=== PATIENT | female | born 1955 | race Caucasian/White ===

== ENCOUNTER 2017-08-11 10:28 | Emergency (ER) | payer SELFPAY, MEDICAID ==
[2017-08-11 12:49] LABS: URINE BLOOD (Dip) POC 2+ (NEGATIVE); URINE GLUCOSE (Dip) POC Negative (NEGATIVE); URINE KETONES (Dip) POC Negative (NEGATIVE); URINE LEUKOCYTE EST (Dip) POC 1+ (NEGATIVE); URINE NITRITE (Dip) POC Negative (NEGATIVE); URINE TOTAL PROTEIN POC Negative (NEGATIVE)
[2017-08-11 13:04] LABS: ADD MAN DIFF? NO
[2017-08-11 13:09] LABS: WHITE BLOOD COUNT 7.7 10^3/ul (4.8-10.8)
[2017-08-11 13:09] LABS: BASOPHIL # 0.1 10^3/ul (0.0-0.1); BASOPHILS % 0.7 % (0.0-2.0); EOSINOPHILS # 0.1 10^3/ul (0.0-0.5); EOSINOPHILS % 1.8 % (0.0-7.0); HEMATOCRIT 38.3 % (37.0-47.0); HEMOGLOBIN 13.4 g/dl (12.0-16.0); LYMPHOCYTES # 1.7 10^3/ul (0.8-2.9); MEAN CORPUSCULAR HEMOGLOBIN 29.5 pg (29.0-33.0); MEAN CORPUSCULAR VOLUME 84.4 fl (82.0-101.0); MEAN PLATELET VOLUME 10.1 fl (7.4-10.4); MONOCYTE # 0.5 10^3/ul (0.3-0.9); MONOCYTES % 6.6 % (0.0-11.0); NEUTROPHIL # 5.3 10^3/ul (1.6-7.5); NEUTROPHILS % 68.6 % (39.0-77.0); PLATELET COUNT 335 10^3/UL (140-415); RED BLOOD COUNT 4.54 10^6/ul (4.20-5.40)
[2017-08-11 13:31] LABS: ALANINE AMINOTRANSFERASE 62 IU/L (13-69); ALBUMIN 5.1 g/dl (3.3-4.9); ALKALINE PHOSPHATASE 104 IU/L (42-121); ANION GAP 19 (8-16); ASPARTATE AMINO TRANSFERASE 49 IU/L (15-46); BILIRUBIN,INDIRECT 0.6 mg/dl (0-1.1); BILIRUBIN,TOTAL 0.6 mg/dl (0.2-1.3); BLOOD UREA NITROGEN 9 mg/dl (7-20); CALCIUM 10.2 mg/dl (8.4-10.2); CARBON DIOXIDE 29 mmol/L (21-31); CHLORIDE 94 mmol/L (97-110); CREATININE 0.53 mg/dl (0.44-1.00); GLUCOSE 177 mg/dl (70-220); POTASSIUM 3.7 mmol/L (3.5-5.1); SODIUM 138 mmol/L (135-144); TOTAL PROTEIN 8.5 g/dl (6.1-8.1)
[2017-08-11] MEDS: ACETAMINOPHEN 500 MG TAB PO (13:49)
== END 2017-08-11 14:17 | disposition home or self-care (01) ==
LOC: FTE 10:28
DX: N39.0 Urinary tract infection, site not specified (principal); E11.9 Type 2 diabetes mellitus without complications; I10 Essential (primary) hypertension; Z79.84 Long term (current) use of oral hypoglycemic drugs
CPT/HCPCS: 80053; 81003; 85025; 99283

== ENCOUNTER 2017-09-09 20:17 | Emergency (ER) | payer BC, OTHER ==
[2017-09-10] MEDS: KETOROLAC 60 MG INJ IM (00:12)
[2017-09-10] MEDS: ACYCLOVIR 800 MG TAB PO (00:15)
== END 2017-09-10 00:20 | disposition home or self-care (01) ==
LOC: FTE 09-10 00:20
DX: B02.9 Zoster without complications (principal); I10 Essential (primary) hypertension; E11.9 Type 2 diabetes mellitus without complications; Z79.84 Long term (current) use of oral hypoglycemic drugs
CPT/HCPCS: 96372; 99284-25

== ENCOUNTER 2019-01-03 06:35 | Emergency (ER) | payer BC ==
[2019-01-03 07:16] LABS: ADD MAN DIFF? NO
[2019-01-03] MEDS: SOD CHLORIDE 0.9% 1,000 ML IV (07:18)
[2019-01-03] MEDS: ONDANSETRON 4 MG INJ IV (07:18)
[2019-01-03] MEDS: morphine 4 MG/ML VIAL IV (07:18)
[2019-01-03 07:21] LABS: BASOPHILS % 0.5 % (0.0-2.0); EOSINOPHILS % 0.3 % (0.0-7.0); HEMATOCRIT 35.4 % (37.0-47.0); HEMOGLOBIN 12.7 g/dl (12.0-16.0); LYMPHOCYTES # 1.1 10^3/ul (0.8-2.9); LYMPHOCYTES % 13.7 % (15.0-51.0); MEAN CORPUSCULAR HEMOGLOBIN 28.7 pg (29.0-33.0); MEAN CORPUSCULAR HGB CONC 35.9 g/dl (32.0-37.0); MEAN CORPUSCULAR VOLUME 79.9 fl (82.0-101.0); MEAN PLATELET VOLUME 9.7 fl (7.4-10.4); MONOCYTE # 0.5 10^3/ul (0.3-0.9); MONOCYTES % 5.7 % (0.0-11.0); NEUTROPHIL # 6.3 10^3/ul (1.6-7.5); NEUTROPHILS % 79.3 % (39.0-77.0); PLATELET COUNT 315 10^3/UL (140-415); RED BLOOD COUNT 4.43 10^6/ul (4.20-5.40); RED CELL DISTRIBUTION WIDTH 11.2 % (11.5-14.5)
[2019-01-03 07:21] LABS: WHITE BLOOD COUNT 7.9 10^3/ul (4.8-10.8)
[2019-01-03] MEDS: KETOROLAC 30 MG INJ IV (07:21)
[2019-01-03 07:30] LABS: ADD UMIC NO; UR ASCORBIC ACID NEGATIVE (NEGATIVE); UR BILIRUBIN (Dip) NEGATIVE (NEGATIVE); UR BLOOD (Dip) NEGATIVE (NEGATIVE); UR CLARITY CLEAR (CLEAR); UR COLOR STRAW (YELLOW); UR GLUCOSE (Dip) 1+ mg/dL (NEGATIVE); UR KETONES (Dip) 1+ mg/dL (NEGATIVE); UR LEUKOCYTE ESTERASE (Dip) NEGATIVE Leu/ul (NEGATIVE); UR NITRITE (Dip) NEGATIVE (NEGATIVE); UR TOTAL PROTEIN (Dip) NEGATIVE (NEGATIVE); UR UROBILINOGEN (Dip) NEGATIVE (NEGATIVE)
[2019-01-03 07:38] LABS: ALANINE AMINOTRANSFERASE 36 IU/L (13-69); ALBUMIN/GLOBULIN RATIO 1.61; ALKALINE PHOSPHATASE 96 IU/L (42-121); ANION GAP 18 (5-13); ASPARTATE AMINO TRANSFERASE 32 IU/L (15-46); BLOOD UREA NITROGEN 9 mg/dl (7-20); CALCIUM 9.9 mg/dl (8.4-10.2); CARBON DIOXIDE 26 mmol/L (21-31); CHLORIDE 87 mmol/L (97-110); CREATININE 0.45 mg/dl (0.44-1.00); Estimated GFR > 60 mL/min (>60); GLUCOSE 193 mg/dl (70-220); LIPASE 78 U/L (23-300); SODIUM 131 mmol/L (135-144); TOTAL PROTEIN 8.1 g/dl (6.1-8.1)
[2019-01-03 07:41] LABS: POTASSIUM 2.9 mmol/L (3.5-5.1)
[2019-01-03 07:49] LABS: TROPONIN-I < 0.012 ng/ml (0.000-0.120)
[2019-01-03] MEDS: POTASSIUM CHLORIDE (SR) 20 MEQ TAB PO (07:55)
== END 2019-01-03 08:50 | disposition home or self-care (01) ==
LOC: E/R 06:35
DX: E87.6 Hypokalemia (principal); I10 Essential (primary) hypertension; E11.9 Type 2 diabetes mellitus without complications; R10.13 Epigastric pain; Z79.84 Long term (current) use of oral hypoglycemic drugs
CPT/HCPCS: 36415; 71045; 74176; 80053; 81003; 83690; 84484; 85025; 93005; 96361; 96374; 96375; 99285-25

== ENCOUNTER 2019-01-04 18:52 | Inpatient (IN) | payer BC ==
[2019-01-04 21:03] LABS: URINE PH (Dip) POC 7.5 (5.0-8.5)
[2019-01-04 21:03] LABS: URINE BLOOD (Dip) POC Trace-intact (NEGATIVE); URINE GLUCOSE (Dip) POC Negative (NEGATIVE); URINE KETONES (Dip) POC Negative (NEGATIVE); URINE LEUKOCYTE EST (Dip) POC 1+ (NEGATIVE); URINE NITRITE (Dip) POC Negative (NEGATIVE); URINE TOTAL PROTEIN POC Negative (NEGATIVE)
[2019-01-04] MEDS: METOCLOPRAMIDE 10 MG INJ IV (21:26)
[2019-01-04] MEDS: FAMOTIDINE 20 MG INJ IV (21:26)
[2019-01-04] MEDS: LIDOCAINE/MYLANTA 40 ML BTL PO (21:27)
[2019-01-04] MEDS: morphine 4 MG/ML VIAL IV (21:27)
[2019-01-04 21:36] LABS: ADD MAN DIFF? NO
[2019-01-04 21:37] LABS: BASOPHILS % 0.4 % (0.0-2.0); EOSINOPHILS # 0.1 10^3/ul (0.0-0.5); HEMATOCRIT 33.7 % (37.0-47.0); HEMOGLOBIN 12.2 g/dl (12.0-16.0); LYMPHOCYTES # 2.5 10^3/ul (0.8-2.9); LYMPHOCYTES % 36.1 % (15.0-51.0); MEAN CORPUSCULAR HEMOGLOBIN 29.2 pg (29.0-33.0); MEAN CORPUSCULAR HGB CONC 36.2 g/dl (32.0-37.0); MEAN CORPUSCULAR VOLUME 80.6 fl (82.0-101.0); MEAN PLATELET VOLUME 10.1 fl (7.4-10.4); MONOCYTE # 0.6 10^3/ul (0.3-0.9); MONOCYTES % 8.3 % (0.0-11.0); NEUTROPHIL # 3.8 10^3/ul (1.6-7.5); NEUTROPHILS % 53.9 % (39.0-77.0); PLATELET COUNT 316 10^3/UL (140-415); RED BLOOD COUNT 4.18 10^6/ul (4.20-5.40); RED CELL DISTRIBUTION WIDTH 11.4 % (11.5-14.5)
[2019-01-04 22:00] LABS: ALANINE AMINOTRANSFERASE 34 IU/L (13-69); ALBUMIN 4.7 g/dl (3.3-4.9); ALBUMIN/GLOBULIN RATIO 1.62; ALKALINE PHOSPHATASE 67 IU/L (42-121); ANION GAP 14 (5-13); ASPARTATE AMINO TRANSFERASE 30 IU/L (15-46); BLOOD UREA NITROGEN 7 mg/dl (7-20); CALCIUM 9.4 mg/dl (8.4-10.2); CARBON DIOXIDE 30 mmol/L (21-31); CHLORIDE 83 mmol/L (97-110); CREATININE 0.56 mg/dl (0.44-1.00); Estimated GFR > 60 mL/min (>60); GLUCOSE 137 mg/dl (70-220); LIPASE 109 U/L (23-300); POTASSIUM 3.3 mmol/L (3.5-5.1); SODIUM 127 mmol/L (135-144); TOTAL PROTEIN 7.6 g/dl (6.1-8.1)
[2019-01-04] MEDS ORDERED: NACL 0.9% 3 ML SYG IV (23:00)
[2019-01-04] MEDS: DOCUSATE SODIUM 100 MG CAP PO (23:00)
[2019-01-04] MEDS ORDERED: DEXTROSE 50% 50 ML SYRINGE IV ×2 (23:30)
[2019-01-04] MEDS ORDERED: GLUCOSE GEL 15 GRAM TUBE BUCCAL (23:30)
[2019-01-04] MEDS ORDERED: GLUCOSE GEL 15 GRAM TUBE PO ×2 (23:30)
[2019-01-04] MEDS: SOD CHLORIDE 0.9% 1,000 ML IV (23:30)
[2019-01-04] MEDS ORDERED: GLUCAGON 1 MG INJ IM (23:30)
[2019-01-05] MEDS: ACCU-CHEK XX (01:03)
[2019-01-05] MEDS: ONDANSETRON 4 MG INJ IV ×3 (01:47→22:37)
[2019-01-05] MEDS: morphine 2 MG INJ IV (01:47)
[2019-01-05] MEDS: POTASSIUM CHLORIDE (SR) 20 MEQ TAB PO (01:47)
[2019-01-05] MEDS: SOD CHLORIDE 0.9% 500 ML IV (02:07)
[2019-01-05] MEDS: ZOLPIDEM 5 MG TAB PO (02:46)
[2019-01-05 04:57] LABS: ADD UMIC NO; UR ASCORBIC ACID NEGATIVE (NEGATIVE); UR BILIRUBIN (Dip) NEGATIVE (NEGATIVE); UR BLOOD (Dip) NEGATIVE (NEGATIVE); UR CLARITY CLEAR (CLEAR); UR COLOR COLORLESS (YELLOW); UR GLUCOSE (Dip) 2+ mg/dL (NEGATIVE); UR KETONES (Dip) TRACE mg/dL (NEGATIVE); UR LEUKOCYTE ESTERASE (Dip) NEGATIVE Leu/ul (NEGATIVE); UR NITRITE (Dip) NEGATIVE (NEGATIVE); UR SPECIFIC GRAVITY (Dip) 1.006 (1.003-1.030); UR TOTAL PROTEIN (Dip) NEGATIVE (NEGATIVE); UR UROBILINOGEN (Dip) NEGATIVE (NEGATIVE)
[2019-01-05] MEDS: MAGNESIUM SULFATE 1 GM/D5W 100 ML IVPB (05:13)
[2019-01-05] MEDS ORDERED: AL HYDROX/MG HYDROX/SIMETH 30 ML CUP PO (06:30)
[2019-01-05] MEDS ORDERED: SUCRALFATE 1 GM TAB PO (06:30)
[2019-01-05 06:53] LABS: ADD MAN DIFF? NO
[2019-01-05 06:57] LABS: BASOPHILS % 0.3 % (0.0-2.0); EOSINOPHILS % 0.1 % (0.0-7.0); HEMATOCRIT 31.1 % (37.0-47.0); HEMOGLOBIN 11.2 g/dl (12.0-16.0); MEAN CORPUSCULAR HEMOGLOBIN 28.6 pg (29.0-33.0); MEAN CORPUSCULAR VOLUME 79.5 fl (82.0-101.0); MEAN PLATELET VOLUME 10.1 fl (7.4-10.4); MONOCYTE # 0.3 10^3/ul (0.3-0.9); MONOCYTES % 3.8 % (0.0-11.0); NEUTROPHIL # 6.6 10^3/ul (1.6-7.5); NEUTROPHILS % 82.4 % (39.0-77.0); PLATELET COUNT 286 10^3/UL (140-415); RED BLOOD COUNT 3.91 10^6/ul (4.20-5.40); RED CELL DISTRIBUTION WIDTH 11.4 % (11.5-14.5)
[2019-01-05 07:10] LABS: HEMOGLOBIN A1C 6.6 % (0-5.9)
[2019-01-05] MEDS: CEFTRIAXONE 1 GM/50 ML (PMX) 50 ML IVPB (07:10)
[2019-01-05 07:59] LABS: ALANINE AMINOTRANSFERASE 39 IU/L (13-69); ALBUMIN 4.1 g/dl (3.3-4.9); ALBUMIN/GLOBULIN RATIO 1.64; ALKALINE PHOSPHATASE 62 IU/L (42-121); ANION GAP 14 (5-13); ASPARTATE AMINO TRANSFERASE 39 IU/L (15-46); BLOOD UREA NITROGEN 5 mg/dl (7-20); CALCIUM 8.3 mg/dl (8.4-10.2); CARBON DIOXIDE 25 mmol/L (21-31); CHLORIDE 84 mmol/L (97-110); CHOL/HDL RATIO 3.3 RATIO; CHOLESTEROL 147 mg/dl (100-200); CREATININE 0.46 mg/dl (0.44-1.00); Estimated GFR > 60 mL/min (>60); GLUCOSE 177 mg/dl (70-220); HDL CHOLESTEROL 44 mg/dl (35-98); LDL CHOLESTEROL,CALCULATED 83 mg/dl; MAGNESIUM 1.8 mg/dl (1.7-2.5); POTASSIUM 3.7 mmol/L (3.5-5.1); SODIUM 123 mmol/L (135-144); TOTAL PROTEIN 6.6 g/dl (6.1-8.1); TRIGLYCERIDES 98 mg/dl (0-149)
[2019-01-05] MEDS: INSULIN ASPART [NOVOLOG] 3 ML PEN SC ×4 (08:26→21:00)
[2019-01-05] MEDS: BISACODYL (EC) 5 MG TAB PO ×2 (08:26→14:15)
[2019-01-05] MEDS: PANTOPRAZOLE (EC) 40 MG TAB PO (08:26)
[2019-01-05] MEDS: ACETAMINOPHEN 325 MG TAB PO (10:16)
[2019-01-05] MEDS: DOCUSATE SODIUM 100 MG CAP PO ×2 (11:52→23:35)
[2019-01-05] MEDS ORDERED: BISACODYL (EC) 5 MG TAB PO (14:00)
[2019-01-05] MEDS: LIDOCAINE/MYLANTA 40 ML BTL PO (14:19)
[2019-01-05] MEDS: SUCRALFATE (100 MG/ML) 10ML CUP GTB ×3 (14:22→20:49)
[2019-01-05 14:32] LABS: ANION GAP 13 (5-13); BLOOD UREA NITROGEN 4 mg/dl (7-20); CALCIUM 8.9 mg/dl (8.4-10.2); CARBON DIOXIDE 27 mmol/L (21-31); CHLORIDE 83 mmol/L (97-110); Estimated GFR > 60 mL/min (>60); GLUCOSE 152 mg/dl (70-220); MAGNESIUM 1.7 mg/dl (1.7-2.5); POTASSIUM 3.6 mmol/L (3.5-5.1); SODIUM 123 mmol/L (135-144)
[2019-01-05 14:48] LABS: OSMOLALITY 249 mOsm/kg (280-295)
[2019-01-05 15:24] LABS: URIC ACID 3.4 mg/dl (3.1-7.9)
[2019-01-05 17:35] LABS: ADD UMIC NO; UR ASCORBIC ACID NEGATIVE (NEGATIVE); UR BILIRUBIN (Dip) NEGATIVE (NEGATIVE); UR BLOOD (Dip) NEGATIVE (NEGATIVE); UR CLARITY CLEAR (CLEAR); UR COLOR COLORLESS (YELLOW); UR GLUCOSE (Dip) NEGATIVE (NEGATIVE); UR KETONES (Dip) NEGATIVE (NEGATIVE); UR LEUKOCYTE ESTERASE (Dip) NEGATIVE Leu/ul (NEGATIVE); UR NITRITE (Dip) NEGATIVE (NEGATIVE); UR SPECIFIC GRAVITY (Dip) 1.004 (1.003-1.030); UR TOTAL PROTEIN (Dip) NEGATIVE (NEGATIVE); UR UROBILINOGEN (Dip) NEGATIVE (NEGATIVE)
[2019-01-05 17:39] LABS: CREATININE,URINE RANDOM < 12.40 mg/dl (20-320)
[2019-01-05 17:51] LABS: ANION GAP 15 (5-13); BLOOD UREA NITROGEN 5 mg/dl (7-20); CALCIUM 8.9 mg/dl (8.4-10.2); CARBON DIOXIDE 26 mmol/L (21-31); CHLORIDE 85 mmol/L (97-110); CREATININE 0.52 mg/dl (0.44-1.00); Estimated GFR > 60 mL/min (>60); GLUCOSE 212 mg/dl (70-220); POTASSIUM 3.6 mmol/L (3.5-5.1); SODIUM 126 mmol/L (135-144)
[2019-01-05] MEDS: POLYETHYLENE GLYCOL 3350 119 GM POWDER PO (18:39)
[2019-01-05] MEDS: RANITIDINE 150 MG TAB PO (20:49)
[2019-01-05] MEDS: MAGNESIUM CITRATE 300 ML BTL PO (21:53)
[2019-01-06] MEDS: ZOLPIDEM 5 MG TAB PO ×2 (01:20→22:47)
[2019-01-06] MEDS: ACCU-CHEK XX (02:00)
[2019-01-06] MEDS: CEFTRIAXONE 1 GM/50 ML (PMX) 50 ML IVPB (05:54)
[2019-01-06] MEDS: POLYETHYLENE GLYCOL 3350 119 GM POWDER PO (05:54)
[2019-01-06 06:24] LABS: ADD MAN DIFF? NO
[2019-01-06 06:26] LABS: WHITE BLOOD COUNT 5.6 10^3/ul (4.8-10.8)
[2019-01-06 06:26] LABS: BASOPHILS % 0.5 % (0.0-2.0); EOSINOPHILS # 0.1 10^3/ul (0.0-0.5); EOSINOPHILS % 0.9 % (0.0-7.0); HEMATOCRIT 34.4 % (37.0-47.0); HEMOGLOBIN 12.5 g/dl (12.0-16.0); LYMPHOCYTES # 2.1 10^3/ul (0.8-2.9); MEAN CORPUSCULAR HGB CONC 36.3 g/dl (32.0-37.0); MEAN CORPUSCULAR VOLUME 79.8 fl (82.0-101.0); MEAN PLATELET VOLUME 9.8 fl (7.4-10.4); MONOCYTE # 0.5 10^3/ul (0.3-0.9); MONOCYTES % 9.1 % (0.0-11.0); NEUTROPHIL # 2.9 10^3/ul (1.6-7.5); NEUTROPHILS % 51.3 % (39.0-77.0); PLATELET COUNT 312 10^3/UL (140-415); RED BLOOD COUNT 4.31 10^6/ul (4.20-5.40); RED CELL DISTRIBUTION WIDTH 11.5 % (11.5-14.5)
[2019-01-06 06:47] LABS: ANION GAP 12 (5-13); BLOOD UREA NITROGEN 6 mg/dl (7-20); CALCIUM 9.2 mg/dl (8.4-10.2); CARBON DIOXIDE 28 mmol/L (21-31); CHLORIDE 90 mmol/L (97-110); CREATININE 0.54 mg/dl (0.44-1.00); Estimated GFR > 60 mL/min (>60); GLUCOSE 133 mg/dl (70-220); POTASSIUM 3.2 mmol/L (3.5-5.1); SODIUM 130 mmol/L (135-144)
[2019-01-06 06:48] LABS: PHOSPHORUS 3.4 mg/dl (2.5-4.9)
[2019-01-06] MEDS: SUCRALFATE (100 MG/ML) 10ML CUP GTB ×4 (08:25→21:22)
[2019-01-06] MEDS: BISACODYL (EC) 5 MG TAB PO ×2 (08:26→09:00)
[2019-01-06] MEDS: INSULIN ASPART [NOVOLOG] 3 ML PEN SC ×4 (08:30→21:24)
[2019-01-06] MEDS: PANTOPRAZOLE (EC) 40 MG TAB PO (08:32)
[2019-01-06 10:01] LABS: OSMOLALITY,URINE 89 mOsm/kg (250-1200)
[2019-01-06] MEDS: DOCUSATE SODIUM 100 MG CAP PO ×2 (10:14→22:47)
[2019-01-06] MEDS: POTASSIUM CHLORIDE 100 ML IVPB ×2 (11:00→15:43)
[2019-01-06] MEDS ORDERED: LIDOCAINE 2% (SDV) 5 ML INJ (14:26)
[2019-01-06] MEDS ORDERED: PROPOFOL 20 ML (14:26)
[2019-01-06] MEDS ORDERED: PROPOFOL 200 MG INJ (14:26)
[2019-01-06] MEDS ORDERED: MEPERIDINE 25 MG INJ IV (15:30)
[2019-01-06] MEDS ORDERED: EPHEDrine 25 MG/5 ML SYG IV (15:30)
[2019-01-06] MEDS ORDERED: DIPHENHYDRAMINE 50 MG INJ IV (15:30)
[2019-01-06] MEDS ORDERED: hydrALAzine 20 MG INJ IV (15:30)
[2019-01-06] MEDS ORDERED: ONDANSETRON 4 MG INJ IV (15:30)
[2019-01-06] MEDS ORDERED: LABETALOL HCL 20MG INJ IV (15:30)
[2019-01-06] MEDS ORDERED: FENTAnyl 50 MCG/ML VIAL IV (15:30)
[2019-01-06] MEDS: RANITIDINE 150 MG TAB PO (21:22)
[2019-01-07] MEDS: ACCU-CHEK XX (02:00)
[2019-01-07] MEDS: CEFTRIAXONE 1 GM/50 ML (PMX) 50 ML IVPB (06:34)
[2019-01-07 06:56] LABS: ADD MAN DIFF? NO
[2019-01-07 06:59] LABS: WHITE BLOOD COUNT 5.6 10^3/ul (4.8-10.8)
[2019-01-07 06:59] LABS: BASOPHILS % 0.7 % (0.0-2.0); EOSINOPHILS # 0.1 10^3/ul (0.0-0.5); EOSINOPHILS % 1.1 % (0.0-7.0); HEMATOCRIT 34.6 % (37.0-47.0); HEMOGLOBIN 11.8 g/dl (12.0-16.0); LYMPHOCYTES # 2.2 10^3/ul (0.8-2.9); LYMPHOCYTES % 38.7 % (15.0-51.0); MEAN CORPUSCULAR HEMOGLOBIN 28.7 pg (29.0-33.0); MEAN CORPUSCULAR HGB CONC 34.1 g/dl (32.0-37.0); MEAN CORPUSCULAR VOLUME 84.2 fl (82.0-101.0); MEAN PLATELET VOLUME 9.6 fl (7.4-10.4); MONOCYTE # 0.5 10^3/ul (0.3-0.9); MONOCYTES % 9.7 % (0.0-11.0); NEUTROPHIL # 2.8 10^3/ul (1.6-7.5); NEUTROPHILS % 49.4 % (39.0-77.0); PLATELET COUNT 287 10^3/UL (140-415); RED BLOOD COUNT 4.11 10^6/ul (4.20-5.40)
[2019-01-07 07:24] LABS: PHOSPHORUS 3.4 mg/dl (2.5-4.9)
[2019-01-07 07:24] LABS: ANION GAP 11 (5-13); BLOOD UREA NITROGEN 5 mg/dl (7-20); CALCIUM 9.6 mg/dl (8.4-10.2); CARBON DIOXIDE 27 mmol/L (21-31); CHLORIDE 99 mmol/L (97-110); CREATININE 0.53 mg/dl (0.44-1.00); Estimated GFR > 60 mL/min (>60); GLUCOSE 123 mg/dl (70-220); MAGNESIUM 1.9 mg/dl (1.7-2.5); POTASSIUM 4.1 mmol/L (3.5-5.1); SODIUM 137 mmol/L (135-144)
[2019-01-07] MEDS: INSULIN ASPART [NOVOLOG] 3 ML PEN SC ×3 (07:46→17:22)
[2019-01-07] MEDS: SUCRALFATE (100 MG/ML) 10ML CUP GTB ×3 (08:29→17:20)
[2019-01-07] MEDS: BISACODYL (EC) 5 MG TAB PO (08:29)
[2019-01-07] MEDS: PANTOPRAZOLE (EC) 40 MG TAB PO (08:29)
[2019-01-07] MEDS: DOCUSATE SODIUM 100 MG CAP PO (11:24)
[2019-01-07] MEDS: SKIN RESP FACT/SHARK/PH MERCU SUPP PR (11:44)
[2019-01-07] MEDS ORDERED: HARD FAT/PHENYLEPHRINE SUPP PR (12:00)
[2019-01-07] MEDS: HYOSCYAMINE 0.125 MG SUBL TAB PO (13:40)
[2019-01-09 12:42] LABS: CREATININE, RANDOM URINE 12 mg/dL (20-275); MICROALBUMIN <0.2 mg/dL; MICROALBUMIN/CREATININE RATIO NOTE (<30)
== END 2019-01-07 17:57 | disposition home or self-care (01) | DRG 392 ==
LOC: PP2 22:57 → E/R 18:52
PROC: 0DB68ZX Excision of Stomach, Via Natural or Artificial Opening Endoscopic, Diagnostic (ICD-10-PCS; principal; 2019-01-06 14:00)
PROC: 0DJD8ZZ Inspection of Lower Intestinal Tract, Via Natural or Artificial Opening Endoscopic (ICD-10-PCS; 2019-01-06 14:00)
DX: K29.70 Gastritis, unspecified, without bleeding (principal); E87.1 Hypo-osmolality and hyponatremia; E87.6 Hypokalemia; I10 Essential (primary) hypertension; E03.9 Hypothyroidism, unspecified; K20.9 Esophagitis, unspecified; K64.8 Other hemorrhoids; K59.00 Constipation, unspecified; E11.9 Type 2 diabetes mellitus without complications; Z79.84 Long term (current) use of oral hypoglycemic drugs
CPT/HCPCS: 36415; 80048; 80053; 80061; 81003; 82043; 82962; 83036; 83690; 83735; 83930; 83935; 84100; 84155; 84300; 84443; 84560; 85025; 87086; 88305; 88312; 96374; 96375; 99285-25